=== PATIENT | female | born 1945 | race Caucasian/White ===

== ENCOUNTER → 2017-09-30 | Outpatient (CLI) | payer OTHER ==
[~2017-09-30] MED LIST: ASPI-555 PO; CLOP75TA32 PO; METO25TA6 PO; OMEP20CA10 PO; ROSU20TA PO; TRAM50TA4 PO; VIT D3
== END | disposition home or self-care (01) ==
LOC: RAH 12:32
PROVIDERS: ATTEND Family Medicine
DX: Z12.31 Encounter for screening mammogram for malignant neoplasm of breast (principal)
CPT/HCPCS: 77067

== ENCOUNTER → 2023-07-27 | Outpatient (CLI) | payer OTHER ==
[~2023-07-27] MED LIST changes: -ASPI-555 PO; +ASPI-556 PO; +IOHEXOL-350 50ML VIAL IV ONE; -OMEP20CA10 PO; +OMEP20CA12 PO; -ROSU20TA PO; +ROSU20TA23 PO
== END | disposition home or self-care (01) ==
LOC: RAH 08:18
PROVIDERS: ATTEND Family Medicine
DX: R91.8 Other nonspecific abnormal finding of lung field (principal); R59.1 Generalized enlarged lymph nodes; R93.89 Abnormal findings on diagnostic imaging of other specified body structures
CPT/HCPCS: 71270; Q9967